=== PATIENT | male | born 1985 | race Two or more races ===

== ENCOUNTER 2019-03-27 14:52 | Emergency (ER) | payer OTHER ==
[~2019-03-27] VITALS: Ht 170.2 cm; Wt 82.0 kg
[2019-03-27] MEDS ORDERED: KETOROLAC 60MG/2ML VIAL IM ONE (17:30)
[2019-03-27] MEDS ORDERED: LORAZEPAM 1MG TABLET PO ONE (20:15)
[2019-03-27] MEDS ORDERED: SODIUM CHLORIDE 0.9% 1,000 ML IV ONE (20:15)
[2019-03-27] MEDS ORDERED: ONDANSETRON HCL 4MG/2ML INJ IV ONE (20:15)
[2019-03-27] MEDS ORDERED: MORPHINE SULFATE 10 MG/ML CPJ IV ONE (20:15)
[2019-03-27 21:47] VITALS: BP 105/79
== END 2019-03-28 00:18 | disposition home or self-care (01) ==
LOC: ER 14:52
DX: S42.402A Unspecified fracture of lower end of left humerus, initial encounter for closed fracture (principal); F10.229 Alcohol dependence with intoxication, unspecified; Y90.9 Presence of alcohol in blood, level not specified; Y08.89XA Assault by other specified means, initial encounter; Y93.89 Activity, other specified; Y92.488 Other paved roadways as the place of occurrence of the external cause
CPT/HCPCS: 24600; 73070; 73080; 73110; 96372; 96374; 96375; 99284; J1885; J2270; J2405; J7030

== ENCOUNTER 2019-04-04 14:32 | Emergency (ER) | payer SELFPAY ==
[~2019-04-04] VITALS: Ht 162.6 cm; Wt 68.0 kg
[2019-04-04 14:47] VITALS: BP 115/85
== END 2019-04-04 19:24 | disposition left against medical advice (07) ==
LOC: ER 14:39
DX: M79.602 Pain in left arm (principal); F10.20 Alcohol dependence, uncomplicated; Y90.9 Presence of alcohol in blood, level not specified
CPT/HCPCS: 99283